=== PATIENT | female | born 1935 | race Caucasian/White ===

== ENCOUNTER 2016-10-04 04:51 | Emergency (ER) | payer MEDICARE, OTHER ==
[2016-10-04 05:35] VITALS: TEMP 98.4
[2016-10-04 05:43] LABS: BASOPHILS % (AUTO) 1 % (0-3); EOSINOPHILS % (AUTO) 5 % (0-9); HEMATOCRIT 40 % (35-47); MEAN CORPUSCULAR HGB CONC 33.9 gm/dl (32.0-36.0); MEAN CORPUSCULAR VOLUME 86 fL (81-99); MONOCYTES % (AUTO) 10.8 % (0-12); NEUTROPHILS % (AUTO) 48.3 % (37-80)
[2016-10-04] MEDS ORDERED: MECLIZINE HYDROCHLORIDE 12.5 MG TAB ONE (05:44)
[2016-10-04] MEDS ORDERED: MECLIZINE HYDROCHLORIDE 12.5 MG TAB PO ONE (05:44)
[2016-10-04 05:48] LABS: ALBUMIN 3.6 gm/dl (3.4-5.0); CALCIUM 9.3 mg/dl (8.5-10.1); POTASSIUM 4.1 mMol/L (3.5-5.1)
[2016-10-04 07:26] VITALS: BP 185/75; PULSE 60; RESP 13; O2SAT 98
== END 2016-10-04 07:07 | disposition home or self-care (01) | DRG 149 ==
LOC: ED 04:51
DX: H81.11 Benign paroxysmal vertigo, right ear (principal)
CPT/HCPCS: 36415; 80053; 85025; 87804; 99283

== ENCOUNTER 2018-01-29 21:20 | Emergency (ER) | payer MEDICARE, OTHER ==
[2018-01-29 21:28] VITALS: TEMP 97.2; O2SAT 97
[2018-01-29 22:03] VITALS: PULSE 67; RESP 20
[2018-01-29 22:07] VITALS: BP 188/90
== END 2018-01-29 22:15 | disposition home or self-care (01) | DRG 759 ==
LOC: ED 21:20
DX: N76.0 Acute vaginitis (principal)
CPT/HCPCS: 99281; 99282

== ENCOUNTER 2019-04-02 10:58 | Outpatient (CLI) | payer MEDICARE, OTHER | END 2019-04-02 10:59 | disposition home or self-care (01) | LOC: CONVCARE 10:58 ==